=== PATIENT | male | born 1960 | race African-American/Black ===

== ENCOUNTER 2018-05-05 11:09 | Emergency (ER) | payer OTHER ==
[~2018-05-05] VITALS: Ht 175.3 cm; Wt 70.3 kg
[~2018-05-05 11:09] MED LIST: COZAAR25 MG; DOLOGEN CAPLET1 EACH PO; JANUMET 50-1,1 UDTAB; MEDROL4 MG PO
[2018-05-05] MEDS ORDERED: CELEBREX200MG PO (15:47)
[2018-05-05] MEDS ORDERED: SKELAXIN800 MG PO (15:47)
== END 2018-05-05 16:12 | disposition home or self-care (01) ==
LOC: ER 11:09
DX: M54.5 Low back pain (principal)